=== PATIENT | female | born 1950 | race Caucasian/White ===

== ENCOUNTER 2020-01-31 12:45 | Outpatient (CLI) | payer MEDICARE, BC, SELFPAY ==
--- NOTE | 2020-01-31 12:53 | CT_ITS ---
WS: [id number] CT LUNG CANCER SCREENING DLP: 52.76 mGy.cm DIvol: 1.51 mGy CLINICAL INFORMATION SCREENING VISIT: Baseline COMPARISON: Chest CT 12/04/2016 FINDINGS Diagnostic quality: Satisfactory Comments: None. Lung Nodules: None. Lungs: Moderate hyperinflation of the lungs from emphysema. Mild reticulation in the medial LEFT uppe r lobe. There are a few scattered benign granulomata with the largest in the RIGHT lower lobe measuri ng 1.0 cm. There is mild cylindrical bronchiectasis in the RIGHT middle lobe. Heart: Normal size heart with no pericardial effusion. Other findings: There is mild atherosclerosis of aorta with no aneurysm. Pulmonary artery size is top normal size at 2.7 cm. Benign partially calcified mediastinal and hilar lymph nodes. There is a cyst in the central liver along the falciform ligament. This study is in adequate to exclu de any change. Splenic granulomata. Moderate increase in thoracic kyphosis. Diffuse osteoporosis. Mild anterior wedging of T3, T4 and T7, T9 and T10. CT/CT lung screening [id number] IMPRESSION: LUNG-RADS: 1-Negative FOLLOW UP: 12 Month: Continue annual screening with LDCT 1. Moderate emphysema with RIGHT middle lobe bronchiectasis. 2. Osteoporosis with several osteoporotic compression fractures in the thoraci c spine.
== END 2020-01-31 12:46 | disposition home or self-care (01) ==
LOC: RAD 12:49
PROVIDERS: Family Provider Internal Medicine; PCP Internal Medicine; Visit Provider Internal Medicine
DX: Z12.2 Encounter for screening for malignant neoplasm of respiratory organs (principal); Z87.891 Personal history of nicotine dependence
CPT/HCPCS: G0297

== ENCOUNTER → 2020-06-20 12:56 | Outpatient (BNVA) | payer MEDICARE, BC, SELFPAY | PROVIDERS: Family Provider Internal Medicine; PCP Internal Medicine; Visit Provider Dermatology | DX: L57.0 Actinic keratosis (principal); L82.0 Inflamed seborrheic keratosis; D23.9 Other benign neoplasm of skin, unspecified; F17.210 Nicotine dependence, cigarettes, uncomplicated | CPT/HCPCS: 17000; 17003; 99203 ==

== ENCOUNTER → 2022-04-01 13:45 | Outpatient (BNVA) | payer MEDICARE, BC, SELFPAY | PROVIDERS: Family Provider Internal Medicine; PCP Internal Medicine; Visit Provider Internal Medicine | DX: I10 Essential (primary) hypertension (principal); F17.210 Nicotine dependence, cigarettes, uncomplicated | CPT/HCPCS: 99213 ==

== ENCOUNTER 2022-10-16 14:18 | Outpatient (CLI) | payer MEDICARE, BC, SELFPAY ==
--- NOTE | 2022-10-16 14:22 | MM_ITS ---
WS: [id number] VIEWS: MLO and CC views both breasts. 3D digital tomosynthesis is also included in this exam. Comparison made with prior exam of 08/12/2016, 10/12/2018,. Findings: There was no sign of mass, architectural distortion or suspicious calcification in either breast. He terogeneously dense MM/[place] [id number] Impression: BI-RADS: 2-Benign FOLLOW-UP: 1 Year Follow-up This mammogram was also analyzed by the Computer Aided Detection System [employer].
== END 2022-10-16 14:19 | disposition home or self-care (01) ==
LOC: RAD 14:18
PROVIDERS: Family Provider Internal Medicine; PCP Internal Medicine; Visit Provider Internal Medicine
DX: Z12.31 Encounter for screening mammogram for malignant neoplasm of breast (principal)
CPT/HCPCS: 77063; 77067

== ENCOUNTER → 2023-04-24 10:41 | Outpatient (BNVA) | payer MEDICARE, BC, SELFPAY | PROVIDERS: Family Provider Internal Medicine; PCP Internal Medicine; Visit Provider Internal Medicine | DX: I47.1 Supraventricular tachycardia (principal); I10 Essential (primary) hypertension; Z72.0 Tobacco use | CPT/HCPCS: 99214 ==

== ENCOUNTER → 2023-07-17 09:11 | Outpatient (BNVA) | payer MEDICARE, BC, SELFPAY | PROVIDERS: Family Provider Internal Medicine; PCP Internal Medicine; Visit Provider Nurse Practitioner Family | DX: L57.0 Actinic keratosis (principal); L81.4 Other melanin hyperpigmentation; L82.0 Inflamed seborrheic keratosis; L85.3 Xerosis cutis; L72.0 Epidermal cyst; L57.8 Other skin changes due to chronic exposure to nonionizing radiation; F17.210 Nicotine dependence, cigarettes, uncomplicated | CPT/HCPCS: 17000; 17003; 17110; 99213 ==

== ENCOUNTER 2023-09-14 10:16 | Outpatient (CLI) | payer MEDICARE, BC, SELFPAY ==
--- NOTE | 2023-09-14 10:23 | CT_ITS ---
WS: [id number] LDCT LUNG CANCER SCREENING TECHNIQUE: Noncontrast CT of the chest with coronal and sagittal reformatted images. CLINICAL INFORMATION: NICOTINE DEPENDENCE,CIGARETTES COMPARISON: CT 2019 DLP: 42.91 mGy.cm DIvol: Mean CTDIvol: 0.70 (mGy) All CT scans at [facility] use at least one of these dose optimization techniques: automat ed exposure control; mA and/or kV adjustment per patient size (includes targeted exams where dose is matched to clinical indication); or iterative reconstruction. FINDINGS: Moderate chronic emphysematous changes. Subsegmental atelectasis in the RIGHT middle lobe with air br onchograms. Bronchiectasis RIGHT lower lobe with patchy infiltrates RIGHT lower lobe laterally and po steromedially. This is new from previous. Recommend correlation for infectious or inflammatory pneumo nitis. New patchy infiltrates in the RIGHT middle lobe. Aortic calcification. No mediastinal or hilar lymphadenopathy. No axillary lymphadenopathy. Splenic granulomas. Normal GE junction. Chronic compression deformities in the midthoracic spine. Ost eopenia. Low-attenuation lesion in the LEFT hepatic lobe appears unchanged since the prior chest CT 2 017. IMPRESSION: New patchy infiltrates in the RIGHT middle lobe and RIGHT lower lobe with bronchiectasis and mucous plugging. Recommend correlation for infectious or inflammatory pneumonitis. Recommend 3-mo nth follow-up after treatment. CT/CT lung screening [id number] LUNG-RADS: 3-Probably Benign FOLLOW UP: 3 Month LDCT
== END 2023-09-14 10:17 | disposition home or self-care (01) ==
LOC: RAD 10:17
PROVIDERS: PCP Internal Medicine; Visit Provider Physician Assistant
DX: Z12.2 Encounter for screening for malignant neoplasm of respiratory organs (principal); F17.210 Nicotine dependence, cigarettes, uncomplicated
CPT/HCPCS: 71271

== ENCOUNTER 2023-12-01 10:20 | Outpatient (CLI) | payer MEDICARE, OTHER, SELFPAY ==
--- NOTE | 2023-12-01 10:26 | CTR_ITS ---
PROCEDURE INFORMATION: Exam: CT Chest Without Contrast; Diagnostic Exam date and time: 12/01/2023 10:52 AM Age: 73 years old Clinical indication: Condition or disease; Lung condition and disease; Pulmonary nodule, solitary; Additional info: Solitary lung nodule TECHNIQUE: Imaging protocol: Diagnostic computed tomography of the chest without contrast. Radiation optimization: All CT scans at this facility use at least one of these dose optimization techniques: automated exposure control; mA and/or kV adjustment per patient size (includes targeted exams where dose is matched to clinical indication); or iterative reconstruction. COMPARISON: CT lung screening [id number] 09/14/2023 10:30 AM RADIATION DOSE METRICS: Total DLP (mGy-cm): 199.52 FINDINGS: Thyroid: Visualized thyroid is normal in appearance. Lungs: Moderate centrilobular emphysematous changes of the lungs. Unchanged 0.5 cm calcified nodule in the subpleural lateral/posterolateral right lower lobe. No focal consolidation. Multiple additional tiny calcified nodules scattered in the bilateral lungs, unchanged. The previously seen patchy infiltrates in the right middle lobe and right lower lobe, seen on 09/14/2023, are no longer seen on current study and are favored to have represented transient infiltrate, atelectasis, and/or pneumonia. No new or suspicious pulmonary nodules or masses. Pleural spaces: No pleural effusion. No pneumothorax. Heart: Heart is normal in size. No pericardial effusion. Coronary arteries: Mild coronary artery calcifications. Lymph nodes: Multiple small calcified mediastinal and right hilar lymph nodes. No suspicious lymphadenopathy. Vasculature: Mild scattered calcific disease of the aorta and its major branches. Spleen: Stable coarse calcifications in the spleen, likely secondary to prior granulomatous disease. Bones/joints: Multilevel spondylosis. Multiple stable chronic mild compression deformities within the middle thoracic spine. No acute osseous findings. Soft tissues: Superficial soft tissues are within normal limits. CT/CT chest wo con [id number] IMPRESSION: 1. The previously seen patchy infiltrates in the right middle lobe and right lower lobe, seen on 09/14/2023, are no longer seen on current study and are favored to have represented transient infiltrate, atelectasis, and/or pneumonia. 2. No new or suspicious pulmonary nodules or masses. 3. Moderate centrilobular emphysematous changes of the lungs, unchanged. COMMENTS: In the absence of a history or active diagnosis of lung cancer, it is recommended that this patient with emphysema be evaluated for enrollment in a low dose CT lung cancer screening program.
== END 2023-12-01 10:21 | disposition home or self-care (01) ==
LOC: RAD 10:21
PROVIDERS: PCP Internal Medicine; Visit Provider Internal Medicine
DX: R91.1 Solitary pulmonary nodule (principal); J43.2 Centrilobular emphysema
CPT/HCPCS: 71250

== ENCOUNTER → 2024-05-26 13:11 | Outpatient (BNVA) | payer MEDICARE, OTHER, SELFPAY | PROVIDERS: PCP Internal Medicine; Visit Provider Internal Medicine Cardiovascular Disease | DX: I10 Essential (primary) hypertension (principal); Z72.0 Tobacco use; Z86.79 Personal history of other diseases of the circulatory system | CPT/HCPCS: 99213 ==

== ENCOUNTER → 2025-04-03 13:52 | Outpatient (BNVA) | payer MEDICARE, OTHER, SELFPAY | PROVIDERS: PCP Internal Medicine; Visit Provider Internal Medicine | DX: Z86.79 Personal history of other diseases of the circulatory system (principal); I10 Essential (primary) hypertension; Z72.0 Tobacco use | CPT/HCPCS: 99213 ==